=== PATIENT | female | born 1985 | race Caucasian/White ===

== ENCOUNTER 2017-09-14 15:56 | Emergency (ER) | payer OTHER ==
[~2017-09-14] VITALS: Ht 180.3 cm; Wt 117.9 kg
[~2017-09-14 15:56] MED LIST: PERCOCET 325 MG1 TA2 PO; ZOFRAN ODT4 M1 SL
[2017-09-14] MEDS ORDERED: PRENATABS RX T1 EACH PO (17:03)
[2017-09-14] MEDS ORDERED: NEXIUM40 M1 PO (17:04)
[2017-09-14 17:08] LABS: ABSOLUTE BASOPHIL COUNT 0 /CUMM (0.0-0.2); ABSOLUTE EOSINOPHIL COUNT 0 /CUMM (0.0-0.7); ABSOLUTE GRANULOCYTE CT 9.9 /CUMM (1.4-6.5); ABSOLUTE LYMPH COUNT 1.4 /CUMM (1.2-3.4); ABSOLUTE MONOCYTE COUNT 0.7 /CUMM (0.10-0.60); BASOPHIL % 0.3 % (0.0-2.0); EOSINOPHIL % 0.1 % (0-5); GRANULOCYTE % 82.2 % (42.2-75.2); HEMATOCRIT 36.8 % (37-47); MEAN CORPUSCULAR VOLUME 88.3 FL (81.0-99.0); PLATELET COUNT 246 /CUMM (130-400); RBC DISTRIBUTION WIDTH 12.8 % (11.5-14.5); RED BLOOD CELL CT 4.16 /CUMM (4.20-5.40)
--- NOTE | 2017-09-14 17:48 | ED GI/GU/ABDOMINAL COMPLAINT ---
History of Present Illness General Chief Complaint: General Adult Stated Complaint: SENT IN BY DOCTOR FOR FLUIDS, 39 WEEKS Source: patient Exam Limitations: no limitations Vital Signs & Intake/Output Vital Signs & Intake/Output Vital Signs Date Time Temp Pulse Resp B/P B/P Pulse O2 O2 Flow FiO2 Mean Ox Delivery Rate 09/14 1828 96.6 92 18 120/60 100 Room Air 09/14 1706 96.9 96 18 124/62 98 Room Air 09/14 1606 97.4 104 15 104/71 96 Room Air Room Air Allergies Coded Allergies: No Known Allergies (09/14/17) Reconcile Medications Esomeprazole (Nexium) 40 MG CAPSULE.DR 1 CAP PO DAILY ACID REFLUX (Reported) Ondansetron (Zofran Odt) 4 MG TAB.RAPDIS 1 TAB SL TID PRN NAUSEA OXYCODONE HCL/ACETAMINOPHEN (Percocet 5-325 MG Tablet) 325 MG/5 MG TAB 1 TAB PO Q3P PRN PAIN SCALE 7-10 Vit #76/Iron,Carb/FA (Prenatabs Rx Tablet) 29 MG IRON-1 MG TABLET 1 TAB PO DAILY SUPPLEMENT (Reported) Triage Note: 32 YEAR OLD FEMALE, 39 WEEKS SENT TO ED FOR C/C OF N/V/D SINCE THIS MORNING. 3-4 EPISODES OF VOMITING AND DIARRHEA TODAY. PT UNABLE TO TOLERATE FLUIDS. DENIES ABD PAIN. Triage Nurses Notes Reviewed? yes LMP (ages 10-50): 39 WEEKS ? Y Is pt currently ? No Onset: Abrupt Duration: day(s): (1), constant, continues in ED, getting worse Timing: single episode today Quality/Severity: vomiting Activities at Onset: none Prior Abdominal Problems: none Past Sexual History: Unobtainable at this time Sexually Active: Yes Associated Symptoms: nausea/vomiting HPI: 32-year-old female currently 39 weeks presents for evaluation of nausea vomiting and diarrhea. Patient states that symptoms started this morning and have been persistent. She states that she has been unable tolerate fluids due to nausea and vomiting. Diarrhea is watery she reports multiple episodes. No blood no recent travel no antibiotics. She has been taking oral Zofran without any improvement. No vaginal bleeding or abdominal pain fever back pain or urinary symptoms. She called her [employer] doctor who sent her in for further evaluation. She reports that [id number]-old daughter was sick with similar symptoms earlier this week. (Frank Bonds) Past History Travel History Traveled to [place] past 21 day No Medical History Any Pertinent Medical History? see below for history Neurological: NONE EENT: NONE Cardiovascular: NONE Respiratory: NONE Gastrointestinal: GERD Hepatic: NONE Renal: NONE Musculoskeletal: NONE Psychiatric: NONE Endocrine: NONE Surgical History Surgical History: non-contributory Psychosocial History What is your primary language Andorran Tobacco Use: Never used ETOH Use: denies use Illicit Drug Use: denies illicit drug use Family History Hx Contributory? No (Frank Bonds) Review of Systems Review of Systems Constitutional: Reports: no symptoms. EENTM: Reports: no symptoms. Respiratory: Reports: no symptoms. Cardiovascular: Reports: no symptoms. GI: Reports: see HPI, diarrhea, nausea, vomiting. Genitourinary: Reports: no symptoms. Musculoskeletal: Reports: no symptoms. Skin: Reports: no symptoms. Neurological/Psychological: Reports: no symptoms. Hematologic/Endocrine: Reports: no symptoms. Immunologic/Allergic: Reports: no symptoms. All Other Systems: Reviewed and Negative (Frank Bonds) Physical Exam Physical Exam General Appearance: well developed/nourished, no apparent distress, alert, awake Head: atraumatic, normal appearance Eyes: Bilateral: normal appearance, PERRL, EOMI. Ears, Nose, Throat, Mouth: hearing grossly normal, moist mucous membrane Neck: normal inspection, supple, full range of motion Respiratory: normal breath sounds, chest non-tender, no respiratory distress, lungs clear Cardiovascular: regular rate/rhythm, normal peripheral pulses Peripheral Pulses: 2+ radial (R), 2+ radial (L) Gastrointestinal: normal bowel sounds, soft, non-tender, no organomegaly, GRAVID UTERUS Back: normal inspection, normal range of motion, no vertebral tenderness Extremities: normal range of motion Neurologic/Psych: no motor/sensory deficits, awake, alert, oriented x 3, normal gait, normal mood/affect Skin: intact, normal color, warm/dry Core Measures ACS in differential dx? No Sepsis Present: No Sepsis Focused Exam Completed? No (Frank Bonds) Progress Differential Diagnosis: bowel obstruction, cholecystitis, gastritis, intrauterine , kidney stone, pancreatitis, GASTROENTERITIS Plan of Care: Orders Procedure Date/time Status URINALYSIS 09/14 1609 Complete COMPREHENSIVE METABOLIC PANEL 09/14 1609 Complete CBC WITHOUT DIFFERENTIAL 09/14 1609 Complete Laboratory Tests 09/14/17 1817: Urine Color YEL, Urine Clarity CLEAR, Urine pH 6.0, Ur Specific [place] >= 1.030 , Urine Protein TRACE H, Urine Ketones >=80, Urine Nitrite NEG, Urine Bilirubin NEG@ICTO, Urine Urobilinogen 0.2, Ur Leukocyte Esterase NEG, Ur Microscopic SEDIMENT EXAMINED, Urine WBC RARE, Ur Epithelial Cells MOD H, Urine Bacteria RARE H, Urine Mucus FEW, Urine Hemoglobin NEG, Urine Glucose NEG 09/14/17 1650: Anion Gap 11, Estimated GFR > 60, BUN/Creatinine Ratio 18.3, Glucose 81, Calcium 8.1 L, Total Bilirubin 0.6, AST 12 L, ALT 26, Alkaline Phosphatase 109, Total Protein 6.3, Albumin 3.1 L, Globulin 3.2, Albumin/Globulin Ratio 1.0 L, CBC w Diff NO MAN DIFF REQ, RBC 4.16 L, MCV 88.3, MCH 30.0, MCHC 34.0, RDW 12.8, MPV 8.0, Gran % 82.2 H, Lymphocytes % 11.9 L, Monocytes % 5.5, Eosinophils % 0.1, Basophils % 0.3, Absolute Granulocytes 9.9 H, Absolute Lymphocytes 1.4, Absolute Monocytes 0.7 H, Absolute Eosinophils 0, Absolute Basophils 0 PT seen and evaluated. She denies any abdominal pain HER abdomen is soft and nontender. Normal heart tones. No vaginal bleeding. Blood work shows a mildly elevated white blood cell count but otherwise is within normal limits. Urine is clean. Vital signs stable. Patient was given a liter of normal saline and a dose of IV Zofran. She reports feeling much better. She is able tolerate fluids here without any vomiting or diarrhea here. Patient was instructed to continue oral Zofran as needed. Rest. Plenty of fluids and eat bland foods like bananas rice plus and toes. Make a follow-up with primary care doctor/ OBGYN. Discussed return precautions patient appears well she agrees. Case discussed with Dr. Leong He agrees. Initial ED EKG: none (Janes RANDOLPH,Frank) Departure Departure Disposition: HOME OR SELF CARE Condition: Stable Clinical Impression Primary Impression: Nausea vomiting and diarrhea Referrals: Bhavya TILLEY,Genna Woodard (PCP/Family) Additional Instructions: Rest and drink plenty of fluids. Eat bland foods like bananas rice applesauce and toast. Zofran for nausea. Make a follow-up appointment with your [employer] doctor. Monitor symptoms closely return with any concerns. Departure Forms: Customer Survey General Discharge Information (Frank Bonds) PA/FIELD COLLECTOR Co-Sign Statement Statement: ED Attending supervision documentation- [] I saw and evaluated the patient. I have also reviewed all the pertinent lab results and diagnostic results. I agree with the findings and the plan of care as documented in the PA's/FIELD COLLECTOR's documentation. [X] I have reviewed the ED Record and agree with the PA's/FIELD COLLECTOR's documentation. [] Additions or exceptions (if any) to the PAs/FIELD COLLECTOR's note and plan are summarized below: [] (Shobha TILLEY,Vitaliy Dan)
[2017-09-14 18:28] VITALS: BP 120/60
== END 2017-09-14 19:09 ==
LOC: ERH 15:56
PROVIDERS: Physician Assistant Medical
DX: O21.9 Vomiting of pregnancy, unspecified (principal); R19.7 Diarrhea, unspecified; Z3A.39 39 weeks gestation of pregnancy
CPT/HCPCS: 81001; 96361; 96374; J2405

== ENCOUNTER 2017-09-26 08:18 | Inpatient (IN) | payer OTHER ==
[~2017-09-26] VITALS: Ht 181.6 cm; Wt 73.5 kg
[~2017-09-26 08:18] MED LIST changes: +NEXIUM40 M1 PO; +PRENATABS RX T1 EACH PO
[2017-09-26 09:04] LABS: ABSOLUTE BASOPHIL COUNT 0.1 /CUMM (0.0-0.2); ABSOLUTE EOSINOPHIL COUNT 0 /CUMM (0.0-0.7); ABSOLUTE GRANULOCYTE CT 7.1 /CUMM (1.4-6.5); ABSOLUTE LYMPH COUNT 2.7 /CUMM (1.2-3.4); ABSOLUTE MONOCYTE COUNT 0.6 /CUMM (0.10-0.60); BASOPHIL % 0.6 % (0.0-2.0); EOSINOPHIL % 0.5 % (0-5); GRANULOCYTE % 67.5 % (42.2-75.2); HEMATOCRIT 34.4 % (37-47); MEAN CORPUSCULAR HGB CONC 34.2 G/DL (33.0-37.0); MEAN CORPUSCULAR VOLUME 87.6 FL (81.0-99.0); MEAN PLATELET VOLUME 8.1 FL (7.4-10.4); PLATELET COUNT 283 /CUMM (130-400); RBC DISTRIBUTION WIDTH 12.7 % (11.5-14.5); RED BLOOD CELL CT 3.93 /CUMM (4.20-5.40); WHITE BLOOD CELL COUNT 10.5 /CUMM (4.8-10.8)
--- NOTE | 2017-09-26 11:53 | History & Physical Pre-Op ---
General Information and HPI MD Statement: I have seen and personally examined JOLENE OLIVAREZ and documented this H&P. The patient is a 32 year old F who presented with a patient stated chief complaint of4 1+ weeks []. History of Present Illness: 32-year-old 2 para 1001 at 41 weeks presents to childbirth center with inducible cervix adequate care for induction of labor with Pitocin. Patient denies rupture of membranes headache edema on lesion on patient on since the risks and benefits of induction Allergies/Medications Allergies: Coded Allergies: No Known Allergies (09/14/17) Home Med list Esomeprazole (Nexium) 40 MG CAPSULE.DR 1 CAP PO DAILY ACID REFLUX (Reported) Ondansetron (Zofran Odt) 4 MG TAB.RAPDIS 1 TAB SL TID PRN NAUSEA Vit #76/Iron,Carb/FA (Prenatabs Rx Tablet) 29 MG IRON-1 MG TABLET 1 TAB PO DAILY SUPPLEMENT (Reported) Past History Medical History Neurological: NONE EENT: NONE Cardiovascular: NONE Respiratory: NONE Gastrointestinal: GERD Hepatic: NONE Renal: NONE Musculoskeletal: NONE Psychiatric: NONE Endocrine: NONE Surgical History Pertinent Surgical History: non-contributory Past Family/Social History Psychosocial History Smoking Status: Never Smoked Review of Systems Review of Systems: -13 point review of systems as stated in the HPI Exam & Diagnostic Data Last 24 Hrs of Vital Signs/I&O Intake & Output 09/26 1600 09/26 0800 09/26 0000 Intake Total Output Total Balance Patient 162 lb Weight Physical Exam: Obese white female with glasses Edge HEENT anicteric Lungs clear Abdomen soft estimated weight 3900 g Willis extremities negative edema negative Homans Assessment/Plan Assessment/Plan: Assessment is 41 week inducible cervix Plan Pitocin observe for As Ranked By This Provider Problem List: 1.
--- NOTE | 2017-09-26 15:32 | Labor & Delivery Summary ---
Delivery Summary Vaginal Delivery: Vaginal: spontaneous Placenta: Placenta: spontanteous, normal, 3 vessel Anesthesia: moderate sedation, NITROUS OXIDE Additional Comments: Normal spontaneous vaginal delivery of a viable female infant over an anterior and laceration and second-degree laceration. Placenta by continuous cord traction intact three-vessel cord repair of the lacerations with 30 under local and nitrous free of the urethra and cervix estimated blood loss 850 mL
[2017-09-27 03:55] VITALS: BP 134/80
[2017-09-27 08:22] LABS: ABSOLUTE BASOPHIL COUNT 0.1 /CUMM (0.0-0.2); ABSOLUTE EOSINOPHIL COUNT 0 /CUMM (0.0-0.7); ABSOLUTE GRANULOCYTE CT 9.7 /CUMM (1.4-6.5); ABSOLUTE LYMPH COUNT 3.3 /CUMM (1.2-3.4); BASOPHIL % 0.4 % (0.0-2.0); EOSINOPHIL % 0.3 % (0-5); GRANULOCYTE % 69.3 % (42.2-75.2); HEMATOCRIT 32.3 % (37-47); MEAN CORPUSCULAR HGB 30.1 PG (27.0-31.0); MEAN CORPUSCULAR HGB CONC 33.9 G/DL (33.0-37.0); MEAN CORPUSCULAR VOLUME 88.8 FL (81.0-99.0); MEAN PLATELET VOLUME 8.1 FL (7.4-10.4); PLATELET COUNT 289 /CUMM (130-400); RED BLOOD CELL CT 3.64 /CUMM (4.20-5.40)
--- NOTE | 2017-09-27 09:35 | PN- Post Delivery/GYN ---
Subjective Subjective: NO COMPLAINTS ABD SOFT NT FUNDUS FIRM NT LOCHIA MINIMAL EXT -EDEMA -HOMANS Objective Last 24 Hrs of Vital Signs/I&O PER CHART Vital Signs Date Time Temp Pulse Resp B/P B/P Pulse O2 O2 Flow FiO2 Mean Ox Delivery Rate 09/27 0355 134/80 Assessment/Plan Assessment/Plan ASSESSS S/PNSVD PLAN CONT PPC
[2017-09-28] MEDS ORDERED: IBUPROFEN800 M1 PO (10:40)
== END 2017-09-28 11:15 | DRG 775 ==
LOC: GNO 08:18
PROVIDERS: Specialist
PROC: 0KQM0ZZ Repair Perineum Muscle, Open Approach (ICD-10-PCS; principal; 2017-09-26)
PROC: 10E0XZZ Delivery of Products of Conception, External Approach (ICD-10-PCS; principal; 2017-09-26)
PROC: 3E033VJ Introduction of Other Hormone into Peripheral Vein, Percutaneous Approach (ICD-10-PCS; 2017-09-26)
DX: O48.0 Post-term pregnancy (principal); K21.9 Gastro-esophageal reflux disease without esophagitis; Z37.0 Single live birth; O70.1 Second degree perineal laceration during delivery; O99.214 Obesity complicating childbirth; Z3A.41 41 weeks gestation of pregnancy; O99.62 Diseases of the digestive system complicating childbirth
CPT/HCPCS: GNOS; 81001; J1650; J7120; Q2036